=== PATIENT | female | born 1955 | race Caucasian/White ===

== ENCOUNTER 2025-03-20 10:36 | Outpatient (CLI) | payer MEDICARE, MEDICAID ==
--- NOTE | 2025-03-20 12:45 | RADIOLOGY REPORT ---
INDICATION: OVARIAN CYST, RIGHT SIDE TECHNIQUE: Multiple real-time grayscale transabdominal and tvsonographic images along with color and duplex Doppler of the uterus and ovaries were obtained. COMPARISON: None FINDINGS: Uterus surgically absent. Right ovary measures 3 x 2 x 3 cm. Left ovary measures 2 x 1 x 2 cm. 2 cm right ovarian cyst. IMPRESSION: 1. Grossly unremarkable pelvic ultrasound.
--- NOTE | 2025-03-20 15:04 | RADIOLOGY REPORT ---
CT Chest without intravenous contrast INDICATION: NICOTINE DEPENDENCE, CIGARETTES TECHNIQUE: Multidetector spiral CT of the chest was performed from the lung apices to the upper abdom en. Axial, coronal and sagittal multiplanar reformats were performed. Radiation dose : Chest: CTDI volume is 2 mGy. Dose-length product is 84 mGy*cm The dose indicators for CT are the volume computed tomography (CT) dose index (CTDIvol) and the dose length product (DLP), and are measured in units of mGy and mGy-cm, respectively. These indicators are not patient dose, but values generated from the CT scanner acquisition factors. The report includes radiation exposure data for exposures received during this examination. Comparison: None Findings: Lower neck: Normal thyroid. Lungs: Atelectasis and consolidation in the medial left lung base. Heart/Vascular Structures: Normal heart size. No pericardial effusion. Lymph Nodes: Subcentimeter mediastinal lymph nodes. Pleura: No pleural effusion or significant pneumothorax. Musculoskeletal: No acute osseous abnormality. Soft tissues: Normal. Upper abdomen: Small sliding-type hiatal hernia. IMPRESSION: 1. Atelectasis and consolidation in the medial left lung base. No suspicious nodule. Lung-RADS 2-ovi ign. Small sliding-type hiatal hernia. Radiation optimization: All CT scans at this facility use at least one of these dose optimization boni hniques: Automated exposure control mA and/or kV adjustment per patient size (includes targeted exams where dose is matched to clinical indication) or iterative reconstruction. HS:Y
== END 2025-03-20 23:59 | disposition home or self-care (01) ==
LOC: RAD 10:36
PROVIDERS: ATTEND Physician Assistant
DX: Z12.2 Encounter for screening for malignant neoplasm of respiratory organs (principal); N83.201 Unspecified ovarian cyst, right side; J98.11 Atelectasis; J18.1 Lobar pneumonia, unspecified organism; K44.9 Diaphragmatic hernia without obstruction or gangrene; R59.0 Localized enlarged lymph nodes; F17.210 Nicotine dependence, cigarettes, uncomplicated; Z90.710 Acquired absence of both cervix and uterus
CPT/HCPCS: 71271; 76830; 76856; 93976

== ENCOUNTER 2025-05-08 08:16 | Outpatient (CLI) | payer MEDICARE, MEDICAID ==
[~2025-05-08] VITALS: Ht 139.7 cm; Wt 86.2 kg
[2025-05-08 09:05] VITALS: PULSE 78; RESP 16; O2SAT 93
[2025-05-08 09:17] VITALS: PULSE 78; RESP 16; O2SAT 93
[2025-05-08 09:33] VITALS: PULSE 82; RESP 18
[2025-05-08] MEDS: albuterol 2.5 MG/3 ML nebule NEB ONE (10:09)
--- NOTE | 2025-05-09 15:34 | PROCEDURE NOTE - Respiratory ---
Procedure Note-Respiratory Providers to CC Copies To 1: GADIEL ALBERTS PA-C Procedure Name: This is a spirometry study dated May 08, 2025. The spirometry study was performed both before and after inhaled bronchodilator. Spirometry measurements: Both the forced vital capacity and the FEV1 are in the normal range. The FEV1 ratio is normal. All of the flow rate measurements are normal. After inhaled bronchodilator was administered, there is slight improvement in some of the flow rate measurements. Overall conclusion: Normal spirometry study. We have no previous studies for comparison. DARRIN THAO MD May 09, 2025 15:34
== END 2025-05-08 23:59 | disposition home or self-care (01) ==
LOC: RT 08:16
PROVIDERS: ATTEND Physician Assistant
DX: R05.3 Chronic cough (principal)
CPT/HCPCS: 94060; 94760

== ENCOUNTER 2025-07-24 16:50 | Emergency (ER) | payer MEDICARE, MEDICAID ==
[~2025-07-24] VITALS: Ht 142.2 cm; Wt 90.0 kg
[2025-07-24 17:35] VITALS: BP 135/96; PULSE 84; O2SAT 96
[2025-07-24 17:43] VITALS: RESP 18
--- NOTE | 2025-07-24 18:54 | Physician Documentation ---
History of Present Illness ~ Chief Complaint: Hypertension Stated Complaint: HIGH BP Time Seen by MD: 17:49 Primary Medical Doctor: [facility] Patient very pleasant 69-year-old female that presents to the emergency department for evaluation of hypertension. Patient reports that she was seen by her primary care provider yesterday and asked to monitor her blood pressures regularly at home. Patient reports that she checked her blood pressure at home today with her brother and [id number] is blood pressure monitor. Patient reports that it was significantly high in the 170s on her systolic diastolic was also elevated she is unsure what that number was at this time. Patient reports her brother became very alarmed and gave her a 25 mg losartan. Patient's initial blood pressure here in the emergency department was elevated in the 170s. Patient's blood pressure responded to the losartan that she took appears to her presentation here in the emergency department in her blood pressures have been appropriate and have normalized. Patient denies headaches vision changes nausea vomiting fever chills diarrhea or any other symptoms at this time. Chest pain chest pressure shortness of breath or any other symptoms. Medication Reconciliation Allergies: Coded Allergies: No Known Allergies (Unverified , 07/24/25) Past Medical History Past Medical History: Depression Past Surgical History: hysterectomy Alcohol Use: Occasionally Drug Use: marijuana Lives with: Alone Lives In: Assisted Care Occupation: unemployed Review of Systems ROS As stated above in the HPI, otherwise all systems are reviewed and negative. Physical Exam Vital Signs: Temperature: 97.9, Source: Temporal, Heart Rate: 84, Respiratory Rate: 18, BP: 135/96, Pulse Oximetry: 96, Weight: 90.000 Oxygen Flow Rate: 0 Physical Exam VITALS: Reviewed and as above. GENERAL: Alert, no apparent distress. HEENT: Normocephalic, atraumatic, PERRL, EOMI, dry mucosa, no erythema RESPIRATORY: Lungs clear, normal breath sounds, no respiratory distress. CHEST: No accessory muscle use, no retractions CV: Regular rate, rhythm, no edema, no murmur, No: JVD, initially hypertensive, repeat blood pressure is show normotensive. GI: Soft, non-tender, bowels sounds present, no rebound, guarding, or rigidity BACK: No CVA tenderness, or swelling MUSCULOSKELETAL No deformities, no edema SKIN: Warm and dry, no rash NEURO: Oriented x4, No motor or sensory deficit PSYCH: Normal mood and affect, no agitation Progress Results/Orders Results/Orders Vital Signs 07/24/25 07/24/25 07/24/25 16:54 17:35 17:43 Temp 97.9 97.9 Pulse 90 84 Resp 16 18 B/P (MAP) 184/110 135/96 (109) Pulse Ox 94 96 O2 Flow Rate 0 0 Medical Decision Making Additional information obtaine: other Findings Chief Complaint: Hypertension History of Present Illness: 69-year-old female presents to the emergency department for evaluation of elevated blood pressure. Patient was seen by primary care provider yesterday and instructed to monitor blood pressures at home. Today, patient checked blood pressure at home using her brother's monitor and noted systolic blood pressure in the 170s with elevated diastolic (exact value uncertain). Patient's brother became alarmed and administered 25 mg losartan prior to ED presentation. Patient denies headache, vision changes, nausea, vomiting, chest pain, chest pressure, shortness of breath, or other symptoms concerning for acute target organ damage. Emergency Department Course: Initial blood pressure elevated in the 170s systolic. Blood pressure normalized following pre-arrival dose of losartan 25 mg and remained stable throughout ED stay. Patient remained asymptomatic throughout evaluation. Medical Decision-Making: This patient presents with asymptomatic severe hypertension without evidence of hypertensive emergency. She demonstrates no signs or symptoms of acute target organ damage (no neurologic deficits, cardiovascular symptoms, acute kidney injury, or other end-organ dysfunction). Her presentation is consistent with hypertensive urgency or chronic uncontrolled hypertension. Per current [place] [employer] and [place] [employer] guidelines, aggressive blood pressure reduction in the emergency department is not indicated for asymptomatic patients without target organ damage. The best available evidence supports avoiding intensification of antihypertensive therapy in the acute care setting, with preference toward outpatient management and close follow-up. Immediate blood pressure reduction within the ED is not recommended or safe for the vast majority of patients with elevated blood pressure who do not have new or worsening end-organ injury. The patient received losartan 25 mg prior to presentation with good response. Recent evidence demonstrates that initiating antihypertensive medications from the emergency department for asymptomatic hypertension is safe and effective, with studies showing an 11 mmHg reduction in blood pressure at follow-up without increased adverse events. Initiation of oral antihypertensive therapy in indicated patients can enhance and expedite transition of care and ultimately aid in prevention of cardiovascular disease. Disposition: Patient is safe for discharge home with the following plan: Medication Management: Initiate losartan 25-50 mg once daily. Patient demonstrated good response to 25 mg dose. This angiotensin receptor deysi represents guideline-concordant first-line therapy for hypertension management. Home Blood Pressure Monitoring: Patient instructed to obtain a validated home blood pressure monitor ([email or web address]) and record readings twice daily (morning and evening) for at least 3 days per week to facilitate accurate assessment and medication titration. Primary Care Follow-up: Patient will follow up with primary care provider within 3-7 days for blood pressure reassessment, medication titration, and evaluation for secondary causes of hypertension. High-quality postdischarge care involves patient education, promotion of self-management and lifestyle modifications, and ongoing monitoring. Patient Education: Clear communication provided regarding medication use, importance of adherence, proper home blood pressure measurement technique, and need for ongoing outpatient management. Patient counseled that hypertension is a chronic condition requiring long-term management rather than acute intervention. Lifestyle Modifications: Counseled on sodium restriction, weight management if applicable, regular physical activity, and alcohol moderation. Return Precautions: Patient instructed to return immediately for severe headache, vision changes, chest pain, shortness of breath, neurologic symptoms, or blood pressure persistently >180/120 mmHg despite medication. Assessment and Plan: Asymptomatic severe hypertension without target organ damage Discharge home with losartan initiation Close primary care follow-up arranged Patient verbalizes understanding of discharge instructions and follow-up plan Differential Dx:Considerations: Include CHF, Include HTN, essential, Include HTN, accelerated, Include HTN, malignant, Include HTN, encephalopathy, Include medical noncompliance, Include medication withdrawal, Include pulmonary edema, Include renal failure, Include -induced, Include other Departure Disposition: 01 HOME / SELF CARE / HOMELESS Impression: Primary Impression: Benign hypertension Condition: Stable Discharge Instructions: Hypertension, Adult Additional Instructions: Why You Came to the Emergency Department You came to the emergency department today because your blood pressure was high (in the 170s). You took a blood pressure medicine called losartan before you arrived, and your blood pressure came down to a normal level. You did not have any symptoms like headache, vision changes, chest pain, or shortness of breath, which is good news. What Is High Blood Pressure? High blood pressure (also called hypertension) is when the force of blood pushing against your blood vessel gray is too high. Over time, this can damage your heart, brain, kidneys, and blood vessels. High blood pressure usually does not cause symptoms, which is why it's called the "silent killer." The good news is that high blood pressure can be controlled with medicine and healthy lifestyle changes. Your Medicines You should start taking losartan 25-50 mg by mouth once daily. This medicine helps lower your blood pressure and protect your heart and kidneys. Take this medicine at the same time every day Do not stop taking this medicine without talking to your doctor first If you miss a dose, take it as soon as you remember, unless it's almost time for your next dose Your doctor may need to adjust the dose at your follow-up visit Checking Your Blood Pressure at Home It is very important to check your blood pressure at home regularly. This helps you and your doctor know if your medicine is working. How to check your blood pressure: Get a validated home blood pressure monitor (you can find a list of good monitors at [employer]) Check your blood pressure twice a day - once in the morning and once in the evening Check it at least 3 days per week Write down all your readings to show your doctor Rest quietly for 5 minutes before checking Sit with your feet flat on the floor and your arm supported at heart level Do not talk while the machine is measuring Healthy Lifestyle Changes Making healthy changes can help lower your blood pressure: Eat less salt - Try to eat less than 1 teaspoon of salt per day Eat more fruits and vegetables - The DASH diet (Dietary Approaches to Stop Hypertension) can help lower blood pressure Exercise regularly - Aim for 30 minutes of activity most days of the week Maintain a healthy weight - Losing even 5-10 pounds can help Limit alcohol - No more than 1-2 drinks per day Don't smoke - If you smoke, ask your doctor for help quitting Manage stress - Try relaxation techniques like deep breathing Follow-Up Care You must see your primary care doctor within 3-7 days. This is very important. Your doctor needs to: Check your blood pressure Make sure your medicine is working Adjust your medicine dose if needed Do blood tests to check your kidney function and potassium levels If you do not have a follow-up appointment scheduled, please call your doctor's office tomorrow to make one. When to Return to the Emergency Department Come back to the emergency department right away if you have: Severe headache that won't go away Vision changes or blurred vision Chest pain or pressure Shortness of breath or trouble breathing Weakness or numbness in your face, arm, or leg Trouble speaking or understanding others Confusion or trouble thinking clearly Blood pressure that stays above 180/120 even after taking your medicine Important Reminders High blood pressure is a long-term condition that needs ongoing treatment Taking your medicine every day is important, even when you feel fine Keep all your follow-up appointments Bring your home blood pressure readings to all doctor visits Ask questions if you don't understand something about your care Questions? If you have questions about your blood pressure or medicines, call your primary care doctor's office. Referrals: NO PRIMARY CARE PROVIDER (PCP) Education Educated: Patient Educated regarding: diagnosis, need for follow up Signature Scribe Signature: A Attestation: Scribed for Rupali Otero by JOSE Zaragoza . 07/24/25 18:56 RUPALI OTERO Jul 24, 2025 18:54
[2025-07-24 19:07] VITALS: TEMP 97.9
== END 2025-07-24 19:08 | disposition home or self-care (01) ==
LOC: ER 16:51
DX: I10 Essential (primary) hypertension (principal); F32.A Depression, unspecified; F12.90 Cannabis use, unspecified, uncomplicated; Z56.0 Unemployment, unspecified; Z72.89 Other problems related to lifestyle; Z90.710 Acquired absence of both cervix and uterus
CPT/HCPCS: 99283

== ENCOUNTER 2025-07-25 09:31 | Emergency (ER) | payer MEDICARE, MEDICAID ==
[~2025-07-25] VITALS: Ht 142.2 cm; Wt 89.7 kg
--- NOTE | 2025-07-25 10:09 | Physician Documentation ---
History of Present Illness ~ Chief Complaint: Hypertension Stated Complaint: HIGH BLOOD PRESSURE Time Seen by MD: 09:41 Primary Medical Doctor: [facility] The patient is a pleasant 69-year-old female that presents to the emergency department accompanied by a family members/docket specialist. Patient reports that she has had multiple episodes of hypertension per their home monitors over the last 24 hours. Patient was seen here in the emergency department last night and evaluated at that time. Patient was discharged with normotensive pressures after taking 25 mg of losartan prior to presentation to the emergency department. This morning the patient presents without taking anything pressures are normotensive again here in the triage room 138/98. The patient has been asked to follow up with her primary care provider as there is nothing that we would treat at this time. Patient has decided to forego getting laboratory diagnostics done at this time she will have them done at her primary care provider's office. Have discussed with the patient the need to return to the emergency department if she has symptoms associated with high blood pressure including headache vision changes fogginess or any other symptoms that we discussed here in the emergency department. If the patient is non symptomatic but only demonstrating high blood pressure at home. She has been asked to write those numbers down and follow up with her primary care provider's so she can be started on antihypertensives and have additional laboratory diagnostics done in the outpatient setting. Patient appears well this morning normotensive remainder of her vital signs are currently normal and she is stable for discharge. Medication Reconciliation Allergies: Coded Allergies: No Known Allergies (Unverified , 07/25/25) Past Medical History Past Medical History: Depression Past Surgical History: hysterectomy Alcohol Use: Occasionally Drug Use: marijuana Lives with: Alone Lives In: Assisted Care Occupation: unemployed Review of Systems ROS As stated above in the HPI, otherwise all systems are reviewed and negative. Physical Exam Vital Signs: Temperature: 97.8, Source: Temporal, Heart Rate: 82, Respiratory Rate: 18, BP: 139/98, Pulse Oximetry: 96, Weight: 89.700 Oxygen Flow Rate: 0 Physical Exam VITALS: Reviewed and as above. GENERAL: Alert, no apparent distress. HEENT: Normocephalic, atraumatic, PERRL, EOMI, dry mucosa, no erythema RESPIRATORY: Lungs clear, normal breath sounds, no respiratory distress. CHEST: No accessory muscle use, no retractions CV: Regular rate, rhythm, no edema, no murmur, No: JVD GI: Soft, non-tender, bowels sounds present, no rebound, guarding, or rigidity BACK: No CVA tenderness, or swelling MUSCULOSKELETAL No deformities, no edema SKIN: Warm and dry, no rash NEURO: Oriented x4, No motor or sensory deficit PSYCH: Normal mood and affect, no agitation Progress Results/Orders Results/Orders Orders - [facility] [facility] TE[facility]IAN Cbc/Diff (07/25/25 09:45) CMP (07/25/25 09:45) Urinalysis, Cult If Indicated (07/25/25 09:45) Vital Signs 07/25/25 09:52 Temp 97.8 Pulse 82 Resp 18 B/P (MAP) 139/98 Pulse Ox 96 O2 Flow Rate 0 Medical Decision Making Additional information obtaine: other Findings he patient is a pleasant 69-year-old female that presents to the emergency department accompanied by a family members/docket specialist. Patient reports that she has had multiple episodes of hypertension per their home monitors over the last 24 hours. Patient was seen here in the emergency department last night and evaluated at that time. Patient was discharged with normotensive pressures after taking 25 mg of losartan prior to presentation to the emergency department. This morning the patient presents without taking anything pressures are normotensive again here in the triage room 138/98. The patient has been as ked to follow up with her primary care provider as there is nothing that we would treat at this time. Patient has decided to forego getting laboratory diagnostics done at this time she will have them done at her primary care provider's office. Have discussed with the patient the need to return to the emergency department if she has symptoms associated with high blood pressure inc luding headache vision changes fogginess or any other symptoms that we discussed here in the emergency department. If the patient is non symptomatic but only demonstrating high blood pressure at home. She has been asked to write those numbers down and follow up with her primary care provider's so she can be started on antihypertensives and have additional laboratory diagnostics done in the outpatient setting. Patient appears well this morning normotensive remainder of her vital signs are currently normal and she is stable for discharge. Differential Dx:Considerations: Include CHF, Include HTN, essential, Include HTN, accelerated, Include HTN, malignant, Include HTN, encephalopathy, Include medical noncompliance, Include medication withdrawal, Include pulmonary edema, Include renal failure, Include -induced, Include other Departure Disposition: 01 HOME / SELF CARE / HOMELESS Impression: Primary Impression: Benign hypertension Condition: Stable Discharge Instructions: Hypertension, Adult Additional Instructions: he patient is a pleasant 69-year-old female that presents to the emergency department accompanied by a family members/docket specialist. Patient reports that she has had multiple episodes of hypertension per their home monitors over the last 24 hours. Patient was seen here in the emergency department last night and evaluated at that time. Patient was discharged with normotensive pressures after taking 25 mg of losartan prior to presentation to the emergency department. This morning the patient presents without taking anything pressures are normotensive again here in the triage room 138/98. The patient has been asked to follow up with her primary care provider as there is nothing that we would treat at this time. Patient has decided to forego getting laboratory diagnostics done at this time she will have them done at her primary care provider's office. Have discussed with the patient the need to return to the emergency department if she has symptoms associated with high blood pressure including headache vision changes fogginess or any other symptoms that we discussed here in the emergency department. If the patient is non symptomatic but only demonstrating high blood pressure at home. She has been asked to write those numbers down and follow up with her primary care provider's so she can be started on antihypertensives and have additional laboratory diagnostics done in the outpatient setting. Patient appears well this morning normotensive remainder of her vital signs are currently normal and she is stable for discharge. Referrals: NO PRIMARY CARE PROVIDER (PCP) Education Educated: Patient Educated regarding: diagnosis, treatment, need for follow up Signature Scribe Signature: A Attestation: Scribed for Emergency,Department by JOSE Zaragoza . 07/25/25 10:[address] Jul 25, 2025 10:09
[2025-07-25 10:22] VITALS: BP 138/98; PULSE 88; RESP 18; TEMP 98.1; O2SAT 97
[2025-07-25 10:31] LABS: MEAN PLATELET VOLUME 9.6 FL (7.4-10.4); RED CELL DISTRIBUTION WIDTH 15.8 % (11.5-14.5)
[2025-07-25 10:51] LABS: CREATININE 0.59 MG/DL (0.40-0.90); TOTAL CARBON DIOXIDE 29.5 MMOL/L (24-32); eCRCL 52 ML/MIN; eGFR > 90 ML/MIN
== END 2025-07-25 10:23 | disposition home or self-care (01) ==
LOC: ER 09:32
DX: I10 Essential (primary) hypertension (principal); F12.90 Cannabis use, unspecified, uncomplicated; Z90.710 Acquired absence of both cervix and uterus
CPT/HCPCS: 36415; 80053; 85025; 99283